=== PATIENT | male | born 1995 | race Caucasian/White ===

== ENCOUNTER 2020-12-28 02:13 | Emergency (ER) | payer OTHER ==
[~2020-12-28] VITALS: Ht 182.9 cm; Wt 86.2 kg
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
--- NOTE | 2020-12-28 02:49 | NUR ---
PT TAKEN TO CT
--- NOTE | 2020-12-28 04:03 | NUR ---
PT ASLEEP, VSS.
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
[2020-12-28 12:20] VITALS: BP 102/60
== END 2020-12-28 12:20 | disposition home or self-care (01) ==
LOC: ER 02:19
DX: S00.83XA Contusion of other part of head, initial encounter (principal); F10.129 Alcohol abuse with intoxication, unspecified; Y08.89XA Assault by other specified means, initial encounter; Y93.89 Activity, other specified; Y92.89 Other specified places as the place of occurrence of the external cause; Y99.8 Other external cause status; Y90.9 Presence of alcohol in blood, level not specified
CPT/HCPCS: 70450; 70486; 72125; 99285; A6403

== ENCOUNTER 2022-07-12 15:55 | Emergency (ER) | payer OTHER ==
[~2022-07-12] VITALS: Ht 185.4 cm; Wt 88.5 kg
[2022-07-12 16:16] VITALS: BP 123/68
[2022-07-12] MEDS ORDERED: predniSONE 20 MG TABLET ONE (16:46)
[2022-07-12] MEDS ORDERED: ALBUTEROL FS 2.5 MG/3 ML VIAL.NEB ONE (16:57)
[2022-07-12] MEDS ORDERED: predniSONE 20 MG TABLET PO ONE (17:00)
[2022-07-12] MEDS ORDERED: ALBUTEROL FS 2.5 MG/3 ML VIAL.NEB NEB ONE (17:00)
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
[2022-07-12 17:12] LABS: BASOPHILS % (AUTO) 0.5 % (0.0-2.0); EOSINOPHILS % (AUTO) 1.4 % (0.0-6.0); HEMATOCRIT 44 % (39-51); LYMPHOCYTES # (AUTO) 1.4 K/uL (0.8-4.8); MEAN CORPUSCULAR HGB CONC 34 g/dl (31.0-36.0); MEAN CORPUSCULAR VOLUME 84 fL (80-96); MONOCYTES # (AUTO) 0.5 K/uL (0.1-1.30); NEUTROPHILS # (AUTO) 4.7 K/uL (1.8-8.9); NEUTROPHILS % (AUTO) 70.1 % (43.0-81.0); PLATELET COUNT (AUTO) 212 K/uL (150-450); RED BLOOD CELL COUNT(AUTO) 5.24 MIL/uL (4.5-6.0); WHITE BLOOD COUNT (AUTO) 6.7 K/uL (4.3-11.0)
[2022-07-12 17:20] LABS: CREATININE 0.9 mg/dL (0.6-1.3); POTASSIUM 3.6 mmol/L (3.5-5.1)
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
== END 2022-07-12 19:22 | disposition left against medical advice (07) ==
LOC: ER 16:21
DX: R06.02 Shortness of breath (principal); J45.909 Unspecified asthma, uncomplicated; Z20.822 Contact with and (suspected) exposure to COVID-19; Z60.2 Problems related to living alone
CPT/HCPCS: 99285; 71045; 87426; 93005; 85025; 80048; 36415; 87880; 84484; 94799; 94640; J7512; C9803; 86403-TC

== ENCOUNTER 2023-03-19 14:08 | Emergency (ER) | payer OTHER ==
[~2023-03-19] VITALS: Ht 185.4 cm; Wt 90.7 kg
[2023-03-19 14:25] VITALS: BP 137/69; TEMP 98.6; O2SAT 98
[2023-03-19] MEDS ORDERED: ACYC5CRE2 TP (14:38)
[2023-03-19] MEDS ORDERED: VALA100026 PO (14:38)
== END 2023-03-19 14:51 | disposition home or self-care (01) ==
LOC: ER 14:08
DX: B00.1 Herpesviral vesicular dermatitis (principal); Z60.2 Problems related to living alone